=== PATIENT | female | born 1975 | race Caucasian/White ===

== ENCOUNTER 2018-05-03 16:20 | Emergency (ER) | payer OTHER, BC, SELFPAY ==
[2018-05-03 16:20] VITALS: BP 120/78; PULSE 75; RESP 16; TEMP 36.6; O2SAT 98; BMI 29.0
--- NOTE | 2018-05-03 16:27 | ED.RN ---
hand silvering supervisor of [employer] accompanies patient, he states patient already filled a FROI on the day of the incident. States they are not requiring a drug screen in this case due to it not being the day of the accident.
--- NOTE | 2018-05-03 17:33 | ED.VISSUMM ---
- ER Visit Summary Date of Service: 05/03/18 Chief Complaint: Wound check History of Present Illness: The patient is a 42 F who was at work 5 days ago and backed into a metal bin. She is a bruise to her left lower back along with a skin tear. Patient was concerned that it may be getting infected. No fever or chills. No significant drainage on the dressing when changed daily. Physical Examination: Vital signs unremarkable. Patient sitting upright in bed. Back examination reveals a 1/2 cm linear skin avulsion on the left lower flank with surrounding ecchymosis. There is no sign of cellulitis. There is no drainage. Test Results: [] Emergency Department Course and Treatment: Wound was cleansed and dressed with bacitracin ointment. Wound care was discussed with spouse. At this time there is no sign of acute infection. They were given warning signs to watch for and to return if any of these concerns arise. Patient is already on ibuprofen regularly and will continue this. Treatment Plan: [] Disposition: Discharge Impression: 1. Left flank contusion 2. Skin avulsion without wound infection This note was generated with [employer] dictation software. It may contain incorrect words, spelling, and punctuation that were not noted in review of the chart prior to signing ED Disposition - Plan for ED Patient: Chief Complaint: Wound Check Referrals: Niharika Wiggins DO [Primary Care Provider] -
--- NOTE | 2018-05-03 17:35 | ED.DEP ---
ED Disposition - Plan for ED Patient: Disposition: Home or Assisted Living Chief Complaint: Wound Check Instructions: ED Sutr Check No Infec, ED Contusion Back Referrals: [facility] [GROUP OF PHYSICIANS] - 3-5 Days
[2018-05-03 17:59] VITALS: BP 126/59; PULSE 711; RESP 16; O2SAT 97
== END 2018-05-03 17:59 | disposition home or self-care (01) ==
PROVIDERS: Emergency Provider Emergency Medicine; Family Provider Family Medicine; PCP Family Medicine
DX: S30.0XXA Contusion of lower back and pelvis, initial encounter (principal); S31.010A Laceration without foreign body of lower back and pelvis without penetration into retroperitoneum, initial encounter; W22.8XXA Striking against or struck by other objects, initial encounter; Y93.9 Activity, unspecified; Y92.9 Unspecified place or not applicable; M19.90 Unspecified osteoarthritis, unspecified site; Z72.0 Tobacco use
CPT/HCPCS: 99282

== ENCOUNTER 2021-03-23 17:26 | Emergency (ER) | payer BC, SELFPAY ==
[2021-03-23 17:27] VITALS: BP 112/78; PULSE 84; RESP 22; TEMP 35.9; O2SAT 99; BMI 29.9
[2021-03-23 17:43] VITALS: BP 112/78; PULSE 84; RESP 22; TEMP 35.9; O2SAT 99
--- NOTE | 2021-03-23 18:00 | NURSING ---
NO OLD EKGS
--- NOTE | 2021-03-23 18:02 | CT_ITS ---
STUDY: CTA CHEST REASON FOR EXAM: Female, 45 years old. Pain. Shortness of breath. COVID positive. RADIATION DOSAGE (If Supplied By Facility): CTDIvol = ( 10.32 ) mGy, DLP = ( 432.74 ) mGycm TECHNIQUE: The examination was performed with the intravenous administration of IV 100mL Isovue-370. Post-processing of the angiographic images was performed, with multiplanar reformation and 3D reconstruction. Individualized dose optimization techniques were used for this CT. COMPARISON: None. FINDINGS: Normal enhancement of the main pulmonary artery and right and left pulmonary arteries. Normal enhancement of the bilateral peripheral pulmonary arteries. There is no demonstrated pulmonary embolism. Normal thoracic aorta and visualized great vessels. There is no demonstrated aortic dissection. Normal heart and pericardium. Normal mediastinum. Normal hilar regions. Normal visualized trachea and bronchi. The lungs are well expanded. Normal pulmonary parenchyma. Normal pleura. Normal chest wall structures. Normal osseous structures. Normal visualized upper abdomen. CT/CTA Chest W/WO Contrast IMPRESSION: Normal CTA chest examination, without a demonstrated pulmonary embolism or arterial dissection. Electronically Signed: Codey Holt DO at 19:08 EDT Tel [phone], Service support ,
--- NOTE | 2021-03-23 18:03 | EKG12_ITS ---
Test Reason : SOB, CP Blood Pressure : / mmHG Vent. Rate : 067 BPM Atrial Rate : 067 BPM P-R Int : 148 ms QRS Dur : 092 ms QT Int : 410 ms P-R-T Axes : 058 081 058 degrees QTc Int : 433 ms Normal sinus rhythm Normal ECG Confirmed by BERNARDO PROCTOR, TYRON ([id number]), commissioning editor ALLAN PITTS ([id number]) on 03/28/2021 7:47:26 AM Referred By: CAYDEN Confirmed By:TYRON CHANG MD
--- NOTE | 2021-03-23 18:06 | EDS_ITS ---
HPI History of Present Illness Chief Complaint: Shortness of Breath Informant: patient Onset/Context/Timing Onset: - (Worsened times past 5 days) Narrative Narrative: Patient present secondary shortness of breath and chest pain. She developed symptoms of Covid on March 02 and tested positive on March 07. Patient continues to have chest congestion, shortness of breath, cough. Patient states her symptoms worsened 5 days ago. She was seen at urgent care today and sent here to rule out blood clot. She denies fever or chills. [facility] Medical History (Updated 03/23/21 @ 20:[address] Anneliese Hong MD) Diabetes Heart disease History of appendicitis Limb weakness Liver disease neck/back pain severe headaches Shoulder pain Stomach ulcer unexplained bruises Home Medications ibuprofen 600 mg PO BID 03/27/17 [History Last Taken Unknown] methocarbamol 500 mg PO BID 03/27/17 [History Last Taken Unknown] cyclobenzaprine 10 mg PO PRN PRN 03/23/21 [History Last Taken Unknown] cyclobenzaprine mg 03/23/21 [History Last Taken Unknown] Allergy/AdvReac Type Severity Reaction Status Date / Time hydrogen peroxide Allergy Other Verified 03/23/21 17:27 morphine Allergy Other Verified 03/23/21 17:27 oxycodone [From Percocet] Allergy Other Verified 03/23/21 17:27 tramadol Allergy Vomiting Verified 03/23/21 17:27 Surgical History History of lingual frenulectomy Social History Smoking Status: Current every day smoker tobacco type: cigarettes alcohol intake: never ROS ROS ED Constitutional Constitutional ED: Denies chills or fever(s) Eyes Eyes: Denies change in vision ENT ENT ED: Denies sore throat Cardiovascular Cardiovascular: Reports chest pain Respiratory/Chest Respiratory/Chest: Reports cough and dyspnea Gastrointestinal Gastrointestinal: Denies abdominal pain, diarrhea, nausea or vomiting Genitourinary Genitourinary ED: Denies dysuria Musculoskeletal Musculoskeletal: Denies back pain Integumentary Denies rash Neurologic Neurologic: Denies headache(s) or weakness Allergic/Immunologic Allergic/Immunologic ED: Denies urticaria EXAM Physical Exam Const Vital Signs: 03/23/21 17:27 03/23/21 17:43 03/23/21 17:47 Temperature 96.7 F L 96.7 F L Temperature Source Temporal Temporal Pulse Rate 84 84 Respiratory Rate 22 H 22 H Respiratory Effort Short of Breath Respiratory Depth Normal Blood Pressure 112/78 112/78 Blood Pressure Mean 89 89 Pulse Ox 99 99 Oxygen Delivery Method Room Air Room Air Room Air 03/23/21 20:07 Temperature Temperature Source Pulse Rate 56 L Respiratory Rate 14 Respiratory Effort Respiratory Depth Blood Pressure 103/73 Blood Pressure Mean Pulse Ox 97 Oxygen Delivery Method Positive well nourished and well developed General Appearance ED: well developed HEENT Reports normocephalic and head/scalp atraumatic Eyes PERRL and EOMs intact bilaterally Neck supple Chest Wall inspection of chest normal and palpation of chest normal Resp normal respiratory effort and clear to auscultation bilaterally Cardio regular rate and regular rhythm GI normal to inspection, nondistended, normoactive bowel sounds Palpation: soft Back/Spine no CVA tenderness Extremity normal to inspection Neuro oriented x3 and no sensory deficits noted Sensorium / Orientation: alert Motor Exam: strength 5/5 throughout Psych mental status grossly normal Skin no rashes or lesions noted MDM MDM MDM Narrative Medical decision making narrative: EKG, lab work, CTA chest obtained. Lab Data Attestation: I reviewed the patient's lab results. Labs: Laboratory Results - last 24 hr 03/23/21 03/23/21 18:28 18:28 WBC 6.3 RBC 4.30 Hgb 12.9 Hct 39.6 MCV 92.1 MCH 30.0 MCHC 32.6 RDW Std Deviation 48.7 H RDW Coeff of Hillary 14.4 Plt Count 252 MPV 9.1 Immature Gran % (Auto) 0.200 Neut % (Auto) 58.4 Lymph % (Auto) 29.3 [place] % (Auto) 9.2 Eos % (Auto) 2.1 Baso % (Auto) 0.8 Absolute Neuts (auto) 3.7 Absolute Lymphs (auto) 1.84 Nucleated RBC % 0 Sodium 141 Potassium 4.0 Chloride 108 H Carbon Dioxide 29.0 Anion Gap 4 L BUN 11 Creatinine 0.96 Estim Creat Clear Calc 70.01 Est GFR (MDRD) Af Amer 81 Est GFR (MDRD) Non-Af 67 BUN/Creatinine Ratio 11.5 Glucose 108 H Calcium 9.1 Troponin I High Sens 5 Radiography Diagnostic Testing: Clinical Impression(s) from Imaging Studies Chest CTA 03/23/21 18:02 IMPRESSION: Normal CTA chest examination, without a demonstrated pulmonary embolism or arterial dissection. Electronically Signed: Codey HoltDO at 19:08 EDT Tel [phone], Service support , EKG Initial EKG: Attestation: I personally reviewed and interpreted this EKG as follows: Interpretation: Sinus Rhythm (Sinus at 67 with no acute ischemia.) Treatment and Re-Evaluation Comments:: Repeat evaluation patient is resting comfortably. O2 sats are in the high 90s on room air. Test results discussed with patient as well as at bedside. They are reassured with these findings and will continue supportive care at home. Discharge Plan Triage Chief Complaint: Shortness of Breath ED Provider: Anneliese Hong Dx/Rx/DC Orders Clinical Impression: Dyspnea Instructions: ED Dyspnea Prescriptions: No Action methocarbamol 500 MG tablet 500 mg PO BID RF: 0 ibuprofen 600 MG tablet 600 mg PO BID RF: 0 cyclobenzaprine 10 mg tablet RF: 0 cyclobenzaprine 10 mg tablet 10 mg PO PRN PRN (Reason: Muscle Spasm) RF: 0 Primary Care Provider: Niharika Wiggins Referrals: Niharika Wiggins DO [Primary Care Provider] - 1 Week if not improving Disposition Disposition: Home, Self Care Discharge Date/Time: 03/23/21 20:08
[2021-03-23 18:36] LABS: Absolute Lymphocyte Count 1.84 X10^3/uL (0.83-4.51); Absolute Neutrophil Count 3.7 X10^3/uL (2.0-7.7); Basophil# 0.05 X10^3/uL; Basophil% 0.8 % (0-1); Eosinophil# 0.13 X10^3/uL; Eosinophils% 2.1 % (0-5); Hematocrit 39.6 % (37-47); Hemoglobin 12.9 g/dL (12.0-15.0); Lymphocyte # 1.84 X10^3/ul (0.83-4.51); Lymphocyte % 29.3 % (19-41); Mean Corp Hgb Conc 32.6 g/dL (32-36); Mean Corpuscular Volume 92.1 fL (81-99); Mean Platelet Vol. 9.1 fl (6.2-12.0); Monocyte# 0.58 X10^3/uL; Monocyte% 9.2 % (0-10); NRBC Flagged by Analyzer 0 % (0-5); Neutrophil # 3.67 X10^3/uL (2.7-7.7); Neutrophil % 58.4 % (47-70); Platelet Count 252 K/mm3 (150-450); RBC Distribution Width CV 14.4 % (11.6-14.6); RBC Distribution Width SD 48.7 fl (35.1-43.9); White Blood Count 6.3 K/mm3 (4.4-11.0)
[2021-03-23 18:54] LABS: Anion Gap 4 (5-15); BUN 11 mg/dL (7-18); BUN/Creat Ratio 11.5 RATIO (10-20); Calcium,Total 9.1 mg/dL (8.5-10.1); Chloride 108 mmol/L (98-107); Creatinine, Serum 0.96 mg/dL (0.55-1.02); EST Glomerular Filtration Rate 67 mL/min (>60); Est Glom Filt Rate - Afr Amer 81 mL/min (>60); Estimated Creatinine Clearance 70.01 ml/min; Glucose 108 mg/dL (74-106); Sodium Level 141 mmol/L (136-145); Troponin-I HS 5 pg/mL (3.0-54.0)
[2021-03-23 20:07] VITALS: BP 103/73; PULSE 56; RESP 14; O2SAT 97
== END 2021-03-23 20:08 | disposition home or self-care (01) ==
PROVIDERS: Emergency Provider Emergency Medicine; PCP Family Medicine
DX: R06.00 Dyspnea, unspecified (principal); R06.02 Shortness of breath; R07.9 Chest pain, unspecified; E11.9 Type 2 diabetes mellitus without complications; F17.210 Nicotine dependence, cigarettes, uncomplicated; Z79.899 Other long term (current) drug therapy; Z86.16 Personal history of COVID-19
CPT/HCPCS: 71275; 80048; 84484; 85025; 93005; 99284; Q9967

== ENCOUNTER 2021-07-05 00:47 | Emergency (ER) | payer BC, SELFPAY ==
[2021-07-05 00:48] VITALS: BP 125/85; PULSE 72; RESP 16; TEMP 35.5; O2SAT 98; BMI 31.1
--- NOTE | 2021-07-05 01:26 | EKG12_ITS ---
Test Reason : DYSRHYTHMIA Blood Pressure : / mmHG Vent. Rate : 062 BPM Atrial Rate : 062 BPM P-R Int : 158 ms QRS Dur : 092 ms QT Int : 412 ms P-R-T Axes : 067 083 062 degrees QTc Int : 418 ms Normal sinus rhythm Normal ECG Confirmed by BERNARDO PROCTOR, TYRON ([id number]), assignment editor YINA KEITH ([id number]) on 07/06/2021 9:08:31 AM Referred By: ALEKS Confirmed By:TYRON CHANG MD
[2021-07-05 01:45] LABS: Anion Gap 7 (5-15); BUN 12 mg/dL (7-18); BUN/Creat Ratio 11.1 RATIO (10-20); Calcium,Total 9.2 mg/dL (8.5-10.1); Chloride 105 mmol/L (98-107); Creatinine, Serum 1.08 mg/dL (0.55-1.02); EST Glomerular Filtration Rate 58 mL/min (>60); Est Glom Filt Rate - Afr Amer 71 mL/min (>60); Estimated Creatinine Clearance 62.23 ml/min; Glucose 115 mg/dL (74-106); Potassium 3.4 mmol/L (3.5-5.1); Sodium Level 140 mmol/L (136-145)
--- NOTE | 2021-07-05 01:57 | EDS_ITS ---
HPI History of Present Illness Chief Complaint: Abn Labs Narrative Narrative: Patient is a 45-year-old female who states she has long haul her Covid disease and recently started going to a facility for this. She states she had blood work drawn today and she was called this afternoon/evening stating her potassium was dangerously high and therefore she should go to the hospital for repeat blood draw. Patient states she feels at her baseline and denies taking any potassium supplements but based on the recommendation of her doctor from her blood draw earlier today presents for evaluation [facility] Medical History (Updated 07/05/21 @ 02:[address] Frederick Reed DO) Diabetes Heart disease History of appendicitis Limb weakness Liver disease neck/back pain severe headaches Shoulder pain Stomach ulcer unexplained bruises Home Medications ibuprofen 600 mg PO BID 03/27/17 [History Last Taken Unknown] methocarbamol 500 mg PO BID 03/27/17 [History Last Taken Unknown] cyclobenzaprine 10 mg PO PRN PRN 03/23/21 [History Last Taken Unknown] cyclobenzaprine mg 03/23/21 [History Last Taken Unknown] Allergy/AdvReac Type Severity Reaction Status Date / Time hydrogen peroxide Allergy Other Verified 07/05/21 00:53 morphine Allergy Other Verified 07/05/21 00:53 oxycodone [From Percocet] Allergy Other Verified 07/05/21 00:53 tramadol Allergy Vomiting Verified 07/05/21 00:53 Surgical History History of lingual frenulectomy Social History Smoking Status: Current every day smoker tobacco type: cigarettes alcohol intake: never ROS ROS ED Constitutional Constitutional ED: Denies chills or fever(s) ENT ENT ED: Denies sore throat Cardiovascular Cardiovascular: Denies chest pain Respiratory/Chest Respiratory/Chest: Reports cough and dyspnea Gastrointestinal Gastrointestinal: Reports nausea; Denies abdominal pain, diarrhea or vomiting Genitourinary Genitourinary ED: Denies dysuria Musculoskeletal Musculoskeletal: Denies myalgias Integumentary Denies rash Neurologic Neurologic: Denies headache(s) Hematologic/Lymphatic Hematologic/Lymphatic: Denies easy bleeding or easy bruising EXAM Physical Exam Const Vital Signs: 07/05/21 00:48 07/05/21 00:53 07/05/21 02:03 Temperature 96 F L Temperature Source Temporal Pulse Rate 72 68 Respiratory Rate 16 18 Respiratory Effort Normal Respiratory Pattern Normal Blood Pressure 125/85 H 91/66 Blood Pressure Mean 98 Pulse Ox 98 98 Oxygen Delivery Method Room Air Positive well nourished and well developed General Appearance ED: well developed HEENT Reports moist mucous membranes Eyes PERRL and EOMs intact bilaterally Neck supple Resp normal respiratory effort and clear to auscultation bilaterally Cardio regular rate and regular rhythm GI normal to inspection, nondistended, normoactive bowel sounds, non-tender, non- distended and no masses Auscultation: normoactive bowel sounds Palpation: soft Extremity normal to inspection Neuro oriented x3 and CN's II-XII intact bilaterally Sensorium / Orientation: alert Motor Exam: strength 5/5 throughout Psych mental status grossly normal Skin no rashes or lesions noted MDM MDM MDM Narrative Medical decision making narrative: Patient presented to the ER with stable vitals and in no acute distress. She reported that her potassium was elevated at 6.4 on her lab work from earlier today however she does not take any potassium pills and has no history of hyperkalemia. Therefore this is most likely lab error and I will repeat the value prior to treatment. Patient EKG shows normal sinus rhythm without peaked T waves or U waves and basic metabolic panel shows a slightly low potassium at 3.4. Therefore at this time patient's vitals are stable her potassium is slightly low not elevated and therefore this confirms that the value from earlier today was a lab error and patient is now safe for discharge Lab Data Attestation: I reviewed the patient's lab results. Labs: Laboratory Results - last 24 hr 07/05/21 00:55 Sodium 140 Potassium 3.4 L Chloride 105 Carbon Dioxide 28.0 Anion Gap 7 BUN 12 Creatinine 1.08 H Estim Creat Clear Calc 62.23 Est GFR (MDRD) Af Amer 71 Est GFR (MDRD) Non-Af 58 L BUN/Creatinine Ratio 11.1 Glucose 115 H Calcium 9.2 Discharge Plan Triage Chief Complaint: Abn Labs ED Provider: Frederick Reed Dx/Rx/DC Orders Clinical Impression: Abnormal laboratory test result, COVID-19 ja lemus Instructions: ED Hyperkalemia Prescriptions: No Action methocarbamol 500 MG tablet 500 mg PO BID RF: 0 ibuprofen 600 MG tablet 600 mg PO BID RF: 0 cyclobenzaprine 10 mg tablet RF: 0 cyclobenzaprine 10 mg tablet 10 mg PO PRN PRN (Reason: Muscle Spasm) RF: 0 Primary Care Provider: Niharika Wiggins Referrals: Niharika Wiggins DO [Primary Care Provider] - Disposition Disposition: Home, Self Care Discharge Date/Time: 07/05/21 02:04
[2021-07-05 02:03] VITALS: BP 91/66; PULSE 68; RESP 18; O2SAT 98
== END 2021-07-05 02:04 | disposition home or self-care (01) ==
PROVIDERS: Emergency Provider Emergency Medicine; PCP Family Medicine; Visit Provider Emergency Medicine
DX: U09.9 Post COVID-19 condition, unspecified (principal); F17.210 Nicotine dependence, cigarettes, uncomplicated
CPT/HCPCS: 80048; 93005; 99282; A4216